=== PATIENT | female | born 1985 | race Caucasian/White ===

== ENCOUNTER → 2020-10-22 08:38 | Outpatient (CLI) | payer OTHER, SELFPAY ==
--- NOTE | ~2020-10-22 | US_ITS ---
EXAMINATION: US breast LT limited HISTORY: Palpable lump in the upper outer quadrant of the left breast TECHNIQUE: Limited right breast ultrasound is performed FINDINGS: There is no evidence of focal abnormal cystic or solid mass in the vicinity of the palpable abnormality of concern. IMPRESSION: No specific sonographic correlate is identified for the reported palpable abnormality of concern. Fur ther evaluation at this time should be based on clinical assessment. Continued follow-up physical exa mination is recommended. BI-RADS Category 1: Negative Reviewed, dictated and finalized at location A. IMPRESSION: No specific sonographic correlate is identified for the reported palpable abnor mality of concern. Further evaluation at this time should be based on clinical assessment. Continued follow-up physical examination is recommended. BI-RADS Category 1: Negative
== END ==
PROVIDERS: Visit Provider Advanced Practice Midwife
DX: N63.20 Unspecified lump in the left breast, unspecified quadrant (principal)
CPT/HCPCS: 76642

== ENCOUNTER 2022-05-15 08:05 | Outpatient (CLI) | payer OTHER, SELFPAY ==
[2022-05-15 08:30] LABS: Basophils Absolute Auto 0.1 K/mm3 (0.0-0.1); Eosinophils Absolute Auto 0.1 K/mm3 (0-0.3); Hematocrit 40.2 % (37.0-47.0); Immature Granulocyte Absolute 0.01 K/mm3 (0.00-0.031); Immature Granulocyte Percent A 0.2 % (0-0.5); Lymphocytes Absolute Auto 2.19 K/mm3 (0.9-3.2); Lymphocytes Percent Auto 42.9 % (18.3-44.2); Mean Corpuscular HGB Conc 34.8 g/dl (32-36); Mean Corpuscular Hemoglobin 30.9 pg (26-34); Mean Corpuscular Volume 88.7 fl (80-100); Mean Platelet Volume 10.3 fl (7.4-10.4); Monocytes Absolute Auto 0.4 K/mm3 (0.1-0.6); Monocytes Percent Auto 7.8 % (2.6-8.5); Neutrophils Absolute Auto 2.4 K/mm3 (1.3-6.7); Neutrophils Percent Auto 46.1 % (45.5-73.1); Platelet Count Result 237 k/mm3 (150-375); Red Blood Count 4.53 M/mm3 (4.2-5.4); Red Cell Distribution Width 12.2 % (11.5-14.5); White Blood Count 5.1 K/mm3 (4.5-10.0)
[2022-05-15 08:44] LABS: Iron 111 ug/dL (37-170)
[2022-05-15 08:56] LABS: Percent Iron Saturation 32 % (20-50)
[2022-05-15 09:02] LABS: Free T4 Free Thyroxine 1.17 ng/mL (0.78-2.19)
[2022-05-15 11:28] LABS: Cholesterol 153 mg/dL (0-200); HDL Direct 71 mg/dL; Triglycerides 46 mg/dL (<150)
[2022-05-15 11:39] LABS: LDL Cholesterol Direct 62 mg/dL
[2022-05-15 11:54] LABS: Beta HCG Quantitative < 2.39 mIU/ML
[2022-05-15 12:35] LABS: Hemoglobin A1C 5.2 % (<5.7)
[2022-05-18 03:18] LABS: DHEA-Sulfate 124 mcg/dL (23-266); Thyroid Peroxidase Antibodies 3 IU/mL (<9)
[2022-05-18 07:32] LABS: FSH 8.6 mIU/mL (***); Progesterone 0.4 ng/mL (***); Prolactin 7.8 ng/mL (***); Triiodothyronine T3 Free 3.5 pg/mL (2.3-4.2)
[2022-05-19 16:42] LABS: Testosterone Free 1.1 pg/mL (0.1-6.4); Testosterone Total 16 ng/dL (2-45)
[2022-05-22 20:27] LABS: Estradiol, Ultrasensitive 98 pg/mL
== END 2022-05-15 08:06 | disposition home or self-care (01) ==
PROVIDERS: Visit Provider Obstetrics & Gynecology
DX: N92.6 Irregular menstruation, unspecified (principal)
CPT/HCPCS: 36415; 80061; 82627; 82670; 82728; 83001; 83036; 83498; 83540; 83550; 84144; 84146; 84402; 84403; 84439; 84443; 84481; 84702; 85025; 86376

== ENCOUNTER 2022-07-28 10:10 | Emergency (ER) | payer OTHER, SELFPAY ==
[2022-07-28 11:16] VITALS: BP 104/67; PULSE 87; RESP 16; TEMP 36.7; O2SAT 100
--- NOTE | 2022-07-28 11:23 | ED.URI ---
HPI - URI/Sore Throat General Chief Complaint: Upper Respiratory Infection Stated Complaint: sorethroat,cough Time Seen by Provider: 07/28/22 11:23 Source: patient Mode of arrival: ambulatory Limitations: no limitations History of Present Illness HPI Narrative: 37-year-old female presents with complaint nasal congestion, cough, sore throat for 4 days. Afebrile. Taking [id number] medications to treat symptoms. Reports sore throat is worse with coughing. She states because she has had symptoms for 4 days she was concerned that it may be strep. Denies nausea vomiting diarrhea. No chest pain or shortness breath. All systems reviewed and negative except as noted above. Related Data Home Medications Medication Instructions Recorded Confirmed No Home Medications 05/08/22 07/28/22 Allergies Allergy/AdvReac Type Severity Reaction Status Date / Time No Known Allergies Allergy Verified 07/28/22 11:19 Review of Systems Review of Systems: CONSTITUTIONAL: Denies fever, chills, or sweats. Reports fatigue. EYES: Denies visual changes, redness, or discharge. ENT: Reports rhinorrhea, congestion, sore throat. Denies otalgia. CARDIOVASCULAR: Denies chest pain, palpitations, or edema. RESPIRATORY: reports cough. Denies dyspnea. GASTROINTESTINAL: Denies abdominal pain, nausea, vomiting, or diarrhea. GENITOURINARY: Denies dysuria or hematuria. SKIN: Denies rash or itching. MUSCULOSKELETAL: Denies back pain, joint pain, or myalgia. NEUROLOGIC: Denies headache, numbness, or weakness. PSYCHIATRIC: Denies anxiety or depression. All other systems reviewed are negative, except as documented in HPI. 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 There is no relevant family history pertinent to the presenting complaint. Exam Narrative: GENERAL: This is a well-nourished, well-developed patient, in no apparent distress. HEAD: normocephalic, atraumatic. EYES: PERRL. Sclera clear/white. Vision is grossly intact. EARS: External ears normal, auditory canals clear and without drainage, TMs normal without perforation. Hearing grossly intact. NOSE: External nose normal with no obvious nasal discharge, nares without redness, no rhinorrhea. THROAT: Mucous membranes moist, posterior pharynx clear. NECK: Neck supple, non-tender without lymphadenopathy, masses or thyromegaly. CARDIOVASCULAR: Regular rate and rhythm without murmurs, gallops, or rubs. RESPIRATORY: Clear to auscultation. Breath sounds equal bilaterally. No wheezes, rales, or rhonchi. SKIN: warm, Dry, intact with no suspicious lesions or rash, good texture and turgor. NEURO: awake, alert, and oriented to person, place and time. There were no obvious focal neurologic abnormalities. EXTREMITIES: No joint tenderness, effusion, or edema noted. Course Course Level of Care: Express Care Visit Vital Signs Vital signs: Vital Signs Temperature 36.7 C 07/28/22 11:16 Pulse Rate 87 07/28/22 11:16 Respiratory Rate 16 07/28/22 11:16 Blood Pressure 104/67 07/28/22 11:16 Pulse Oximetry 100 07/28/22 11:16 Oxygen Delivery Room Air 07/28/22 11:16 Temperature 36.7 C 07/28/22 11:16 Pulse Rate 87 07/28/22 11:16 Respiratory Rate 16
== END 2022-07-28 11:30 | disposition home or self-care (01) ==
PROVIDERS: Emergency Provider Nurse Practitioner Family
DX: J02.0 Streptococcal pharyngitis (principal)
CPT/HCPCS: 87081; 87147; 99212; G0463